=== PATIENT | female | born 1970 | race Caucasian/White ===

== ENCOUNTER 2018-09-07 06:05 | Day surgery (SDC) | payer OTHER ==
[~2018-09-07] VITALS: Ht 134.6 cm; Wt 72.6 kg
[2018-09-07 06:31] VITALS: BP 132/76
[2018-09-07 11:24] VITALS: BP 104/70
== END 2018-09-07 11:20 | disposition home or self-care (01) ==
LOC: DS 06:05 → OR 08:30 → DS 08:30
PROVIDERS: Obstetrics & Gynecology
PROC: 0UDB8ZZ Extraction of Endometrium, Via Natural or Artificial Opening Endoscopic (ICD-10-PCS; 2018-09-07)
PROC: 0UB98ZZ Excision of Uterus, Via Natural or Artificial Opening Endoscopic (ICD-10-PCS; principal; 2018-09-07 08:30)
DX: N92.1 Excessive and frequent menstruation with irregular cycle (principal); N84.0 Polyp of corpus uteri
CPT/HCPCS: J0690; J2250; J2704; J7030

== ENCOUNTER 2018-09-09 14:17 | Emergency (ER) | payer OTHER ==
[~2018-09-09] VITALS: Ht 147.3 cm; Wt 72.6 kg
[2018-09-09 14:19] VITALS: Ht 147.3 cm; Wt 72.6 kg
[2018-09-09 15:01] LABS: BASOPHIL % 0.2 % (0-2); PLATELET COUNT 233 x10^3mcL (130-400); RED CELL DISTRIBUTION WIDTH 13.7 % (11.5-14.5)
[2018-09-09 15:20] LABS: ALBUMIN 3.7 g/dL (3.4-5.0); ALKALINE PHOSPHATASE 130 U/L (46-116); ALT/SGPT 79 U/L (14-59); AST/SGOT 62 U/L (15-37); BILIRUBIN TOTAL 0.3 mg/dL (0.20-1.00); CALCIUM 8.9 mg/dL (8.5-10.1); CREATININE SERUM 0.8 mg/dL (0.6-1.0); GFR1 > 60 mL/min; GLUCOSE SERUM 109 mg/dL (74-106); TOTAL PROTEIN, SERUM 7.7 g/dL (6.4-8.2)
[2018-09-09 15:31] LABS: CHLORIDE SERUM 100 mmol/L (98-107); POTASSIUM SERUM 3.6 mmol/L (3.5-5.1); SODIUM SERUM 137 mmol/L (136-145)
[2018-09-09 15:32] LABS: CARBON DIOXIDE 25.1 mmol/L (21-32)
[2018-09-09 17:00] LABS: microscopic required? YES; urine erythrocyte 3+ (NEGATIVE)
[2018-09-09 20:41] VITALS: BP 120/86
== END 2018-09-09 20:41 | disposition home or self-care (01) ==
LOC: ED 14:17
PROVIDERS: Emergency Medicine
DX: E86.0 Dehydration (principal); J11.1 Influenza due to unidentified influenza virus with other respiratory manifestations; Z98.890 Other specified postprocedural states
CPT/HCPCS: 83880; 85378; 87804; J1885; J2270; J7030; Q0092; Q9967

== ENCOUNTER 2018-10-25 19:39 | Emergency (ER) | payer OTHER ==
[~2018-10-25] VITALS: Ht 149.9 cm; Wt 71.7 kg
[2018-10-25 19:54] VITALS: Ht 149.9 cm; Wt 71.7 kg
[2018-10-25 20:25] LABS: BASOPHIL % 0.3 % (0-2); PLATELET COUNT 276 x10^3mcL (130-400); RED CELL DISTRIBUTION WIDTH 14.2 % (11.5-14.5)
[2018-10-25 20:33] LABS: CALCIUM 8.5 mg/dL (8.5-10.1); CARBON DIOXIDE 25.9 mmol/L (21-32); CHLORIDE SERUM 106 mmol/L (98-107); CREATININE SERUM 0.7 mg/dL (0.6-1.0); GFR1 > 60 mL/min; GLUCOSE SERUM 104 mg/dL (74-106); POTASSIUM SERUM 4.2 mmol/L (3.5-5.1); SODIUM SERUM 140 mmol/L (136-145)
[2018-10-25 20:37] LABS: ALBUMIN 3.6 g/dL (3.4-5.0); ALKALINE PHOSPHATASE 129 U/L (46-116); ALT/SGPT 59 U/L (14-59); AST/SGOT 36 U/L (15-37); BILIRUBIN TOTAL 0.21 mg/dL (0.20-1.00)
[2018-10-26 01:19] VITALS: BP 120/63
== END 2018-10-26 01:19 | disposition home or self-care (01) ==
LOC: ED 19:39
PROVIDERS: Emergency Medicine
DX: N39.0 Urinary tract infection, site not specified (principal); D25.9 Leiomyoma of uterus, unspecified; Z98.890 Other specified postprocedural states
CPT/HCPCS: 36415; J1885; J7030; Q9967

== ENCOUNTER 2018-11-06 15:48 | Emergency (ER) | payer OTHER ==
[~2018-11-06] VITALS: Ht 152.4 cm; Wt 70.3 kg
[2018-11-06 15:53] VITALS: Ht 152.4 cm; Wt 70.3 kg
[2018-11-06 16:55] LABS: CALCIUM 8.5 mg/dL (8.5-10.1); CARBON DIOXIDE 28.1 mmol/L (21-32); CHLORIDE SERUM 104 mmol/L (98-107); CREATININE SERUM 0.6 mg/dL (0.6-1.0); GFR1 > 60 mL/min; GLUCOSE SERUM 110 mg/dL (74-106); SODIUM SERUM 142 mmol/L (136-145)
[2018-11-06 16:57] LABS: ALBUMIN 3.5 g/dL (3.4-5.0); ALKALINE PHOSPHATASE 112 U/L (46-116); ALT/SGPT 47 U/L (14-59); AST/SGOT 29 U/L (15-37); BASOPHIL % 0.3 % (0-2); BILIRUBIN TOTAL 0.3 mg/dL (0.20-1.00); PLATELET COUNT 250 x10^3mcL (130-400); RED CELL DISTRIBUTION WIDTH 14.1 % (11.5-14.5)
[2018-11-06 17:12] LABS: microscopic required? NO
[2018-11-06 17:20] LABS: urine erythrocyte NEGATIVE (NEGATIVE)
[2018-11-06 17:48] VITALS: BP 105/69
== END 2018-11-06 17:48 | disposition home or self-care (01) ==
LOC: ED 15:48
PROVIDERS: Emergency Medicine
DX: R42 Dizziness and giddiness (principal); R51 Headache; R11.2 Nausea with vomiting, unspecified; R68.83 Chills (without fever)
CPT/HCPCS: J2405; J7030; J8597